=== PATIENT | male | born 1995 | race Caucasian/White ===

== ENCOUNTER 2018-07-19 09:35 | Day surgery (SDC) | payer OTHER ==
[~2018-07-19 09:35] MED LIST: Lactated Ringers 1,000 ML IV ONE; Lactated Ringers 1,000 ML IV SCH; Sensorcaine 0.25% 10 ML ONE
[2018-07-19] MEDS ORDERED: Versed 2 MG/2 ML Injection IV ONE (09:36)
[2018-07-19] MEDS ORDERED: SUBLIMAZE 100 MCG/2 ML IV ONE (09:36)
[2018-07-19] MEDS ORDERED: DIPRIVAN 200 MG/20 ML IV ONE (09:36)
[2018-07-19] MEDS ORDERED: BRIDION 200MG/2ML IV ONE (09:36)
[2018-07-19] MEDS ORDERED: Zemuron 100 MG/10 ML IV ONE (09:36)
[2018-07-19] MEDS ORDERED: TORAdol 30 mg Injection IV ONE (09:36)
[2018-07-19] MEDS ORDERED: KEFZOL 1 GM ONE (15:20)
[2018-07-19 16:27] VITALS: O2SAT 100
[2018-07-19 16:56] VITALS: BP 133/74; PULSE 79
--- NOTE | 2018-07-20 10:33 | OP ---
PROCEDURE DATE/TIME: 07/19/2018 1457 PREOPERATIVE DIAGNOSIS: Right buttock mass. POSTOPERATIVE DIAGNOSIS: Right buttock mass. PROCEDURE: Excision right buttock mass 3 x 2.25 x 3 cm. PROCEDURE PERFORMED BY: Vale Somers M.D. COMPLICATIONS: None. ESTIMATED BLOOD LOSS: Minimal. ANESTHESIA: General. SPECIMEN: Right buttock mass 3 cm wide by 2.25 cm longitudinally by 3 cm deep. HISTORY: This is a 22 year-old gentleman who presents with a right buttock mass which he has elected for excision. He was seen preoperatively. The lesion was confirmed with him. H&P and consent reviewed with him and confirmed. The region was marked with him awake and alert. DESCRIPTION OF PROCEDURE: He was sent back to the operative suite. Anesthesia induced. He was prepped and draped in usual sterile fashion. Complete time out performed. He was in the prone position. After time out we verified our markings with correct side. We made an elliptical incision to complete encompass the protruding lobulated lesion which appeared to be a soft tissue lesion. Incision was taken down through skin, subcutaneous tissue and completely encircled the part of the lesion that went into the subcutaneous tissue. The lesion was completely removed. We irrigated and closed with interrupted vertical mattress 3-0 Prolene suture and the lesion was sent to the pathology. The patient tolerated the procedure well. There were no immediate complications. There was good hemostasis. Lesion completely removed. The patient tolerated the procedure well. I discussed the results with his family in the postoperative area as well as written down instructions for him and given him prescription for pain medication.
== END 2018-07-19 16:59 | disposition home or self-care (01) ==
LOC: SDC 09:35
PROVIDERS: ATTEND Surgery
DX: L72.0 Epidermal cyst (principal)
CPT/HCPCS: J0690; J1885; J2250; J2704; J3010